=== PATIENT | male | born 1995 | race Caucasian/White ===

== ENCOUNTER 2017-08-25 13:08 | Emergency (ER) | payer BC, OTHER, SELFPAY ==
[2017-08-25 13:48] VITALS: BP 126/86; PULSE 79; O2SAT 99
[2017-08-25] MEDS ORDERED: TORAdol 30 mg Injection IM ONE (13:57)
[2017-08-25] MEDS ORDERED: BACIGUENT PACKET TP ONE (13:58)
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
[2017-08-25] MEDS ORDERED: BACIGUENT PACKET ONE (14:29)
[2017-08-25] MEDS ORDERED: TORAdol 30 mg Injection ONE (14:29)
--- NOTE | 2017-08-25 14:31 | XRAY ---
Indication: Pain following punching injury. Comparison: November 17, 2014. 3 views of the right hand demonstrates new minimally angulated transverse fractures involving the distal shafts of the 3rd/4th metacarpals with overlying soft tissue swelling. No other bony, articular, or soft tissue abnormalities.
== END 2017-08-25 15:24 | disposition home or self-care (01) ==
LOC: ED 13:08
DX: S62.322A Displaced fracture of shaft of third metacarpal bone, right hand, initial encounter for closed fracture (principal); S62.324A Displaced fracture of shaft of fourth metacarpal bone, right hand, initial encounter for closed fracture; W22.8XXA Striking against or struck by other objects, initial encounter
CPT/HCPCS: 73130; 96372; 99283; J1885; A9270-GY

== ENCOUNTER 2017-09-08 00:05 | Emergency (ER) | payer BC ==
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
[2017-09-08 00:43] LABS: BASOPHIL % 0.2 % (0.0-0.4); Basophil (Absolute #) 0.02 (0-0.4); Eosinophil % 0.9 % (0.00-5.0); Eosinophil (Absolute #) 0.07 (0-0.5); Granulocyte Absolute (ANC) 5.42 (1.4-6.9); Hematocrit 46.3 % (42-50); Hemoglobin 16.3 gm/dl (12.5-18.0); Lymphocytes % 24.8 % (24.0-44.0); Mean Corpuscular Hemoglobin 29.6 pg (26-32); Mean Corpuscular Hgb Concent. 35.2 g/dl (32-36); Mean Platelet Volume 9.6 fl (6-9.5); Monocyte (Absolute #) 0.57 (0.0-1.3); Monocytes % 7.1 % (0.0-12.0); Platelet Count 208 K/mm3 (150-450); Red Blood Count 5.51 M/mm3 (4.1-5.6); Red Cell Distribution Width 13.3 % (11.5-14.0); White Blood Count 8.1 K/mm3 (4.0-10.5)
[2017-09-08 01:08] LABS: ACETAMINOPHEN < 2.0 ug/ml (10-30); ALBUMIN 4.6 g/dL (3.4-5.0); ALKALINE PHOSPHATASE 82 U/L (46-116); ANION GAP 10.4 MEQ/L (5-15); BLOOD UREA NITROGEN 9 mg/dL (9-20); CHLORIDE 108 mEq/L (98-107); Carbon Dioxide 27.5 mEq/L (21-32); Creatinine 1 1.11 mg/dl (0.55-1.30); EST GLOMERULAR FILTRATION RATE > 60 ML/MIN; ETHYL ALCOHOL 0.188 % (0.00-0.01); Glucose 103 MG/DL (70-110); Potassium 3.8 mEq/L (3.5-5.1); SALICYLATE 4.7 mg/dl (2.8-20.0); SGOT/AST 21 U/L (15-37); SGPT/ALT 25 U/L (12-78); SODIUM 142 mEq/L (136-145); Total Protein 7.7 gm/dL (6.4-8.2)
[2017-09-08 05:11] LABS: Amphetamine,Urine NEG. (NEGATIVE); Barbiturate,Urine NEG. (NEGATIVE); Benzodiazepine,Urine NEG. (NEGATIVE); Cocaine,Urine NEG. (NEGATIVE); Methadone,Urine NEG. (NEGATIVE); Opiate,Urine NEG. (NEGATIVE); PCP,Urine NEG. (NEGATIVE); THC,Urine POS. (NEGATIVE)
[2017-09-08 05:15] LABS: Appearance CLEAR (CLEAR); Bilirubin NEGATIVE (NEGATIVE); Blood NEGATIVE Ery/ul (0-5); Glucose NEGATIVE (NEGATIVE); Ketones NEGATIVE (NEGATIVE); Leukocyte Esterase NEGATIVE (NEGATIVE); Mucus MODERATE /HPF (NEGATIVE); Nitrite NEGATIVE (NEGATIVE); Protein,Urine Dip TRACE (Negative); Specific Gravity 1.025 (1.005-1.025); Urobilinogen NORMAL mg/dL (0-1)
[2017-09-08 06:25] VITALS: O2SAT 100
--- NOTE | 2017-09-08 09:04 | XRAY ---
Indication: Pain and swelling following injury. Known third/fourth metacarpal fractures. Comparison: August 25, 2017. 3 views of the right hand demonstrates stable minimally angulated fractures involving the distal shafts of the third/fourth metacarpals with soft tissue swelling. No obvious bridging/callus formation. No new bony, articular, or soft tissue abnormalities.
--- NOTE | 2017-09-08 09:06 | XRAY ---
Indication: Pain following trauma. Comparison: None 3 views of the left hand obtained. No bony, articular, or soft tissue abnormalities.
[2017-09-08 09:12] VITALS: BP 128/82; PULSE 77
== END 2017-09-08 09:27 | disposition short-term general hospital (02) ==
LOC: ED 00:05
DX: F32.9 Major depressive disorder, single episode, unspecified (principal); R45.851 Suicidal ideations; R22.33 Localized swelling, mass and lump, upper limb, bilateral; W22.8XXA Striking against or struck by other objects, initial encounter; Y92.009 Unspecified place in unspecified non-institutional (private) residence as the place of occurrence of the external cause
CPT/HCPCS: 36415; 73130; 80053; 80307; 81000; 85025; 99285; G0480; G0481

== ENCOUNTER 2019-02-18 01:30 | Emergency (ER) | payer BC, MEDICAID ==
[2019-02-18 01:40] VITALS: O2SAT 99
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
[2019-02-18 02:25] VITALS: BP 136/85; PULSE 74
== END 2019-02-18 02:25 | disposition home or self-care (01) ==
LOC: ED 01:30
DX: F10.10 Alcohol abuse, uncomplicated (principal)
CPT/HCPCS: 36415; 80307; 99283; G0480

== ENCOUNTER 2019-05-06 12:21 | Emergency (ER) | payer MEDICAID ==
[2019-05-06 12:36] VITALS: BP 139/90
[2019-05-06] MEDS ORDERED: TORAdol 30 mg Injection IM ONE (12:36)
[2019-05-06] MEDS ORDERED: Rocephin 1000 MG INJ IM ONE (12:36)
[2019-05-06] MEDS ORDERED: TORAdol 30 mg Injection ONE (12:39)
[2019-05-06] MEDS ORDERED: XYLOCAINE 1% HCL 20 ML MDV ONE (12:39)
[2019-05-06] MEDS ORDERED: Rocephin 1000 MG INJ ONE (12:39)
--- NOTE | 2019-05-06 12:40 | ERPHSYRPT ---
- History of Present Illness Time Seen by Provider: 05/06/19 12:37 Source: patient Exam Limitations: no limitations Patient Subjective Stated Complaint: has had toothache right upper wisdom tooth for two years. has not been able to see a dentist or get medical care due to not having insurance Triage Nursing Assessment: ambulated to room per self. skin w/d, color normal. right upper wisdom tooth broken. no swelling or signs of abcess noted. Physician History: has had toothache right upper wisdom tooth for two years. has not been able to see a dentist or get medical care due to not having insurance Timing/Duration: gradual onset Severity: moderate Prearrival Treatment: over the counter meds Associated Symptoms: tooth pain, No drooling Allergies/Adverse Reactions: No Known Drug Allergies Allergy (Verified 05/06/19 12:28) Hx Tetanus, Diphtheria Vaccination/Date Given: No Hx Influenza Vaccination/Date Given: No Hx Pneumococcal Vaccination/Date Given: No - Review of Systems Constitutional: No Symptoms Eyes: No Symptoms Ears, Nose, & Throat: Loose Teeth Respiratory: No Symptoms Cardiac: No Symptoms Abdominal/Gastrointestinal: No Symptoms Musculoskeletal: No Symptoms Skin: No Symptoms - Past Medical History Pertinent Past Medical History: No Neurological History: No Pertinent History ENT History: No Pertinent History Cardiac History: No Pertinent History Respiratory History: No Pertinent History Endocrine Medical History: No Pertinent History Musculoskeletal History: Fractures GI Medical History: No Pertinent History History: No Pertinent History Psycho-Social History: No Pertinent History Male Reproductive Disorders: No Pertinent History Other Medical History: OF NOTE IS THAT HE BROKE HIS LEFT ELBOW 3 TIMES WHEN HE WAS IN [age],AND 8TH GRADES. - Past Surgical History Past Surgical History: Yes Neuro Surgical History: No Pertinent History Cardiac: No Pertinent History Respiratory: No Pertinent History Gastrointestinal: No Pertinent History Genitourinary: No Pertinent History Musculoskeletal: Orthopedic Surgery Male Surgical History: No Pertinent History Other Surgical History: l elbow repair, - Social History Smoking Status: Current every day smoker How long have you smoked: 2 Exposure to second hand smoke: No Drug Use: none Patient Lives Alone: No - Nursing Vital Signs Nursing Vital Signs: Initial Vital Signs Temperature 98.1 F 05/06/19 12:24 Pulse Rate 71 05/06/19 12:24 Respiratory Rate 16 05/06/19 12:24 Blood Pressure 139/90 05/06/19 12:24 O2 Sat by Pulse Oximetry 99 05/06/19 12:24 Pain Scale Pain Intensity 10 - Physical Exam General Appearance: no apparent distress Eye Exam: bilateral eye: normal inspection Ear Exam: bilateral ear: auricle normal Nasal Exam: normal inspection Throat Exam: dental tenderness, moist mucus membranes Neck Exam: normal inspection Cardiovascular/Respiratory Exam: chest non-tender Neurologic Exam: alert, oriented x 3 SpO2: 99 - Course Nursing assessment & vital signs reviewed: Yes - Progress Progress: unchanged, pain not gone completely Counseled pt/family regarding: diagnosis, need for follow-up - Departure Departure Disposition: Home Clinical Impression: Dentalgia Condition: Stable Critical Care Time: No Referrals: CINDY DONAHUE [Primary Care Provider] - Instructions: Dental Pain (DC) Additional Instructions: Discharge/Care Plan GEORGEKATE ANGI CALLOWAY was seen on 05/06/19 in the Emergency Room. The patient was counseled regarding Diagnosis,Lab results, Imaging studies, need for follow up and when to return to the Emergency Room. Prescriptions given: Discharge Note I have spoken with the patient and/or caregivers. I have explained the patient' s condition, diagnosis and treatment plan based on the information available to me at this time. I have answered the patient's and/or caregiver's questions and addressed any concerns. The patient and/or caregivers have as good understanding of the patient's diagnosis, condition and treatment plan as can be expected at this point. The vital signs have been stable. The patient's condition is stable and appropriate for discharge from the emergency department. The patient will pursue further outpatient evaluation with the primary care physician or other designated or consulting physician as outlined in the discharge instructions. The patient and/or caregivers are agreeable to this plan of care and follow-up instructions have been explained in detail. The patient and/or caregivers have received these instruction. The patient/and or caregivers are aware that any significant change in condition or worsening of symptoms should prompt an immediate return to this or the closest emergency department or call 911. Prescriptions: Amoxicillin 500 mg Cap [Amoxil 500 mg] 500 mg PO TID #30 capsule Naproxen 375 mg [Naprosyn 375 mg] 375 mg PO Q8H #30 tablet
[2019-05-06 13:36] VITALS: PULSE 70; O2SAT 97
== END 2019-05-06 13:36 | disposition home or self-care (01) ==
LOC: ED 12:21
DX: K08.89 Other specified disorders of teeth and supporting structures (principal); F17.210 Nicotine dependence, cigarettes, uncomplicated
CPT/HCPCS: 96372; 99284; J0696; J1885

== ENCOUNTER 2020-08-17 16:59 | Emergency (ER) | payer BC, MEDICAID ==
--- NOTE | 2020-08-17 17:14 | ERPHSYRPT ---
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 He is noticed some burning sharp pain in the left scrotum and testicle region. It is worse when he lifts and strains. He states he has not felt a bulge. He has no dysuria or hematuria. He has had no abnormal penile discharge. Timing/Duration: week(s) (2 to 3 weeks), worse Quality: burning, sharpness Onset Location: scrotal (Left side), left testicle Pain Radiation: none Severity of Pain-Max: mild Severity of Pain-Current: mild Modifying Factors: Improves With: rest (Improves), other (Lifting and straining worsens) Associated Symptoms: denies symptoms Prior abdominal problems: none Sexual intercourse history: non-contributory Allergies/Adverse Reactions: No Known Drug Allergies Allergy (Verified 08/17/20 17:23) Hx Tetanus, Diphtheria Vaccination/Date Given: No Hx Influenza Vaccination/Date Given: No Hx Pneumococcal Vaccination/Date Given: No Travel Risk - International Travel Have you traveled outside of the country in past 3 weeks: No - Coronavirus Screening Are you exhibiting any of the following symptoms?: No Close contact with a COVID-19 positive Pt in past 14-21 Days: No - Past Medical History Pertinent Past Medical History: No Neurological History: No Pertinent History ENT History: No Pertinent History Cardiac History: No Pertinent History Respiratory History: No Pertinent History Endocrine Medical History: No Pertinent History Musculoskeletal History: Fractures GI Medical History: No Pertinent History History: No Pertinent History Psycho-Social History: No Pertinent History Male Reproductive Disorders: No Pertinent History Other Medical History: OF NOTE IS THAT HE BROKE HIS LEFT ELBOW 3 TIMES WHEN HE WAS IN 3,5,AND 7TH GRADES. - Past Surgical History Past Surgical History: Yes Neuro Surgical History: No Pertinent History Cardiac: No Pertinent History Respiratory: No Pertinent History Gastrointestinal: No Pertinent History Genitourinary: No Pertinent History Musculoskeletal: Orthopedic Surgery Male Surgical History: No Pertinent History Other Surgical History: l elbow repair, - Social History Smoking Status: Current every day smoker How long have you smoked: 2 Exposure to second hand smoke: No Drug Use: none Patient Lives Alone: No - Review of Systems Constitutional: No Symptoms Eyes: No Symptoms Ears, Nose, & Throat: No Symptoms Respiratory: No Symptoms Cardiac: No Symptoms Abdominal/Gastrointestinal: No Symptoms Genitourinary Symptoms: Testicle Pain (Localized tenderness junction between left spermatic cord and left testicle) Musculoskeletal: No Symptoms Skin: No Symptoms Neurological: No Symptoms Psychological: No Symptoms Endocrine: No Symptoms Hematologic/Lymphatic: No Symptoms Immunological/Allergic: No Symptoms All Other Systems: Reviewed and Negative - Nursing Vital Signs Nursing Vital Signs: Initial Vital Signs Temperature 98.4 F 08/17/20 17:15 Pulse Rate 63 08/17/20 17:15 Blood Pressure 130/70 08/17/20 17:15 O2 Sat by Pulse Oximetry 98 08/17/20 17:15 Pain Scale Pain Intensity 7 - Physical Exam General Appearance: no apparent distress, alert, anxiety Eye Exam: PERRL/EOMI, eyes nml inspection Ears, Nose, Throat Exam: normal ENT inspection, moist mucous membranes Neck Exam: normal inspection, non-tender, supple, full range of motion Respiratory Exam: airway intact, No chest tenderness, No respiratory distress Gastrointestinal/Abdomen Exam: soft, normal bowel sounds, No tenderness Rectal Exam: not done Male Genital Exam: normal genitalia, epididymal tenderness (Left side), No hernia mass, No testicular tenderness (L), No hernia mass, No inguinal lym phadenopathy, No scrotal swellling Back Exam: normal inspection, normal range of motion, No CVA tenderness, No vertebral tenderness Extremity Exam: normal inspection, normal range of motion, pelvis stable Neurologic Exam: alert, oriented x 3, cooperative, wound/ostomy clinical nurse specialist II-XII nml as tested, normal mood/affect, nml cerebellar function, nml station & gait, sensation nml Skin Exam: normal color, warm, dry Lymphatic Exam: No adenopathy SpO2 Interpretation: normal O2 Delivery: Room Air - Course Nursing assessment & vital signs reviewed: Yes Ordered Tests: Active Orders 24 hr Category Date Time Status UA W/RFX UR CULTURE Stat Lab 08/17/20 17:14 Ordered Medication Summary Discontinued Medications Generic Name Dose Route Start Last Admin Trade Name Jose Aq PRN Reason Stop Dose Admin Levofloxacin 500 mg 08/17/20 17:49 08/17/20 18:05 Levofloxacin 500 Mg Tablet PO 08/17/20 17:50 500 mg STAT ONE Administration Levofloxacin Confirm 08/17/20 17:56 Levofloxacin 500 Mg Tablet Administered 08/17/20 17:57 Dose 500 mg .ROUTE .STK-MED ONE Naproxen 500 mg 08/17/20 17:49 08/17/20 18:05 Naprosyn 500 Mg PO 08/17/20 17:50 500 mg STAT ONE Administration - Progress Progress: unchanged Progress Note: 08/17/20 18:19 Medical decision making: He does not have torsion of his left testicle. He appears to have epididymitis. He does not have an inguinal hernia. He is sent home with instructions for rest, ice, and prescriptions for naproxen and Cipro 08/17/20 18:20 Counseled pt/family regarding: diagnosis, need for follow-up - Departure Departure Disposition: Home Clinical Impression: Left epididymitis Condition: Stable Critical Care Time: No Additional Instructions: Rest from heavy lifting for 48 hours. Ice pack to area 3 times a day for the next 48 hours. Take your prescriptions as prescribed. Follow-up with your primary care physician for persistent or worsening symptoms. Prescriptions: Ciprofloxacin [Cipro 500 MG] 500 mg PO BID #10 tablet Naproxen 500 mg [Naprosyn 500 MG] 500 mg PO BID #10 tablet
[2020-08-17] MEDS ORDERED: Levofloxacin 500 MG Tablet PO ONE (17:49)
[2020-08-17] MEDS ORDERED: Naprosyn 500 MG PO ONE (17:49)
[2020-08-17] MEDS ORDERED: Levofloxacin 500 MG Tablet ONE (17:56)
[2020-08-17 18:33] VITALS: BP 119/78; PULSE 76; O2SAT 99
== END 2020-08-17 18:32 | disposition home or self-care (01) ==
LOC: ED 16:59
DX: N45.1 Epididymitis (principal)
CPT/HCPCS: 99283; A9270-GY

== ENCOUNTER 2022-02-17 15:38 | Emergency (ER) | payer BC, OTHER ==
[2022-02-17 16:23] VITALS: O2SAT 99
--- NOTE | 2022-02-17 16:55 | XRAY ---
Exam: 3 views of the left hand from 02/17/2022. Comparison: 3 views of the left hand from 09/08/2017. Indication: Injury; swelling; pain. Findings: AP, oblique, and lateral radiographs of the left hand reveals a subtle oblique fracture at the base of the proximal phalanx of the left index finger without a significant displacement or malalignment. Some soft tissue swelling is seen about the proximal phalanx of the left index finger. The left second MCP joint appears unremarkable. No other bone or joint abnormality is seen. Impression: 1. There is a subtle shallow oblique acute appearing fracture at the base of the proximal phalanx of the left index finger along the ulnar aspect. No significant displacement or malalignment is seen. Some soft tissue swelling is seen about the proximal phalanx of the left index finger.
--- NOTE | 2022-02-17 17:01 | XRAY ---
Exam: 3 views of the left index finger from 02/17/2022. Comparison: 3 views of the left hand from the same day. 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 Findings: AP, oblique, and lateral images of the left index finger were obtained. I again see a shallow oblique corner fracture through the base of the proximal phalanx of the left index finger on the ulnar side. There is only very slight cortical offset. It is possible this extends to the articular surface, but this is not well seen. The left second MCP joint space appears unremarkable. Soft tissue swelling is seen about the left index finger, particularly proximally. Impression: 1. There appears to be a subtle shallow oblique corner fracture through the ulnar aspect of the base of the proximal phalanx of the left index finger. No significant displacement or malalignment is seen. Soft tissue swelling is seen about the proximal portion of the left index finger.
--- NOTE | 2022-02-17 17:11 | ERPHSYRPT ---
- History of Present Illness Time Seen by Provider: 02/17/22 16:20 Source: patient Exam Limitations: no limitations Patient Subjective Stated Complaint: C/O injury to left hand/knuckles Triage Nursing Assessment: Left hand is swollen and sore to touch. Radial pulse present. Sensation present to fingertips. Able to wiggle all fingers except 2nd digit. Physician History: Patient 26-year-old male presents to our ED for evaluation of injury to his left hand. Patient was at work and states he struck his hand particularly at the left second digit proximal phalanx. Injury occurred just prior to arrival. Pain described as an ache that is localized. Pain worse with movement and palpation. Pain improved with rest. No other injuries reported. No numbness tingling or weakness otherwise. Overlying soft tissue intact. No open or draining lesions. Patient is otherwise healthy. He voices no other complaints or concerns at this time. Portions of this note were created with voice recognition technology. There may be grammatical, spelling, punctuation or sound alike errors Occurred: just prior to arrival Method of Injury: direct blow Quality: constant Severity of Pain-Max: moderate Severity of Pain-Current: mild Extremities Pain Location: 2nd finger: left (Tenderness at the MCP) Modifying Factors: Improves With: movement Associated Symptoms: none Allergies/Adverse Reactions: No Known Drug Allergies Allergy (Verified 02/17/22 16:11) Hx Tetanus, Diphtheria Vaccination/Date Given: Yes Hx Influenza Vaccination/Date Given: No Hx Pneumococcal Vaccination/Date Given: No Immunizations Up to Date: Yes Travel Risk - International Travel Have you traveled outside of the country in past 3 weeks: No - Coronavirus Screening Are you exhibiting any of the following symptoms?: No Close contact with a COVID-19 positive Pt in past 14-21 Days: No - Vaccine Status Have you recieved a Covid-19 vaccination: No - Review of Systems Constitutional: No Symptoms, No Fever, No Chills Eyes: No Symptoms Ears, Nose, & Throat: No Symptoms Respiratory: No Symptoms, No Cough, No Dyspnea Cardiac: No Symptoms, No Chest Pain, No Edema, No Syncope Abdominal/Gastrointestinal: No Symptoms, No Abdominal Pain, No Nausea, No Vomiting, No Diarrhea Genitourinary Symptoms: No Symptoms, No Dysuria Musculoskeletal: No Symptoms, No Back Pain, No Neck Pain Skin: No Symptoms, No Rash Neurological: No Symptoms, No Dizziness, No Focal Weakness, No Sensory Changes Psychological: No Symptoms Endocrine: No Symptoms Hematologic/Lymphatic: No Symptoms Immunological/Allergic: No Symptoms All Other Systems: Reviewed and Negative - Past Medical History Pertinent Past Medical History: No Neurological History: No Pertinent History ENT History: No Pertinent History Cardiac History: No Pertinent History Respiratory History: No Pertinent History Endocrine Medical History: No Pertinent History Musculoskeletal History: Fractures GI Medical History: No Pertinent History History: No Pertinent History Psycho-Social History: No Pertinent History Male Reproductive Disorders: No Pertinent History Other Medical History: OF NOTE IS THAT HE BROKE HIS LEFT ELBOW 3 TIMES WHEN HE WAS IN 4,5,AND 8TH GRADES. - Past Surgical History Past Surgical History: Yes Neuro Surgical History: No Pertinent History Cardiac: No Pertinent History Respiratory: No Pertinent History Gastrointestinal: No Pertinent History Genitourinary: No Pertinent History Musculoskeletal: Orthopedic Surgery Male Surgical History: No Pertinent History Other Surgical History: elbow repair - Social History Smoking Status: Never smoker How long have you smoked: 2 Exposure to second hand smoke: No Drug Use: none Patient Lives Alone: No - Nursing Vital Signs Nursing Vital Signs: Initial Vital Signs Temperature 97.6 F 02/17/22 16:12 Pulse Rate 76 02/17/22 16:12 Respiratory Rate 17 02/17/22 16:12 Blood Pressure 129/60 02/17/22 16:12 O2 Sat by Pulse Oximetry 99 02/17/22 16:12 Pain Scale Pain Intensity 9 - Physical Exam General Appearance: no apparent distress, alert Eyes, Ears, Nose, Throat Exam: normal ENT inspection, moist mucous membranes Neck Exam: non-tender, supple Cardiovascular/Respiratory Exam: chest non-tender, normal breath sounds, regular rate/rhythm, no respiratory distress Abdominal Exam: non-tender, soft, No guarding Back Exam: normal inspection, normal range of motion, No vertebral tenderness Shoulder Exam: normal inspection, non-tender, no evidence of injury, normal ROM Elbow/Forearm Exam: normal inspection, non-tender, no evidence of injury, normal ROM Wrist Exam: normal inspection, non-tender, no evidence of injury, normal ROM Hand Exam: normal inspection, non-tender, no evidence of injury, normal ROM, swelling (Swelling centered around the MCP of the second digit. Tenderness at the MCP. Compartments are soft. Cap refill less than 2 seconds.) Neuro/Tendon Exam: normal sensation, normal motor functions Mental Status Exam: alert, oriented x 3, cooperative Skin Exam: normal color, warm, dry SpO2: 99 O2 Delivery: Room Air - Course Nursing assessment & vital signs reviewed: Yes - Radiology Exams Hand X-ray Interpretation: Interpreted by me (Soft tissue swelling, fracture at base of proximal phalanx. ) Ordered Tests: Active Orders 24 hr Category Date Time Status FINGER(S) Stat Exams 02/17/22 16:40 Completed HAND (MINIMUM 3 VIEWS) Stat Exams 02/17/22 16:24 Completed - Progress Progress: improved Progress Note: X-ray reveals a fracture at the base of the MCP second digit. Overlying soft tissue intact. Soft tissue swelling observed. Patient received Toradol IM for pain control. A prescription for Toradol was written for patient. Patient's finger was immobilized. Patient referred to orthopedic clinic for further evaluation and treatment. Patient voices no other complaints or concerns at this time. Portions of this note were created with voice recognition technology. There may be grammatical, spelling, punctuation or sound alike errors 02/17/22 17:16 Counseled pt/family regarding: diagnosis, need for follow-up, rad results - Departure Departure Disposition: Home Clinical Impression: Fracture of proximal phalanx of left hand Condition: Stable Critical Care Time: No Referrals: CINDY DONAHUE [Primary Care Provider] - Follow up/PCP as directed Additional Instructions: Discharge/Care Plan KATE VAZQUEZ ANGI CALLOWAY was seen on 02/17/22 in the Emergency Room. The patient was counseled regarding Diagnosis,Lab results, Imaging studies, need for follow up and when to return to the Emergency Room. Prescriptions given: Discharge Note I have spoken with the patient and/or caregivers. I have explained the patient's condition, diagnosis and treatment plan based on the information available to me at this time. I have answered the patient's and/or caregiver's questions and addressed any concerns. The patient and/or caregivers have as good understanding of the patient's diagnosis, condition and treatment plan as can be expected at this point. The vital signs have been stable. The patient's condition is stable and appropriate for discharge from the emergency department. The patient will pursue further outpatient evaluation with the primary care physician or other designated or consulting physician as outlined in the discharge instructions. The patient and/or caregivers are agreeable to this plan of care and follow-up instructions have been explained in detail. The patient and/or caregivers have received these instruction. The patient/and or caregivers are aware that any significant change in condition or worsening of symptoms should prompt an immediate return to this or the closest emergency department or call 911. Outpatient Orders: Ortho Referral Time Frame: 1 Day, Facility: [facility], Location: ORTHO CLINIC
[2022-02-17] MEDS ORDERED: TORAdol 30 mg Injection ONE (17:18)
[2022-02-17] MEDS: TORAdol 30 mg Injection IM ONE (17:23)
[2022-02-17 17:42] VITALS: BP 120/64; PULSE 80
== END 2022-02-17 17:35 | disposition home or self-care (01) ==
LOC: ED 15:38
DX: S62.611A Displaced fracture of proximal phalanx of left index finger, initial encounter for closed fracture (principal); W22.8XXA Striking against or struck by other objects, initial encounter; Y99.0 Civilian activity done for income or pay; M79.645 Pain in left finger(s); Z28.310 Unvaccinated for COVID-19
CPT/HCPCS: 29130; 73130; 73140; 96372; 99283; J1885